=== PATIENT | female | born 1980 | race Caucasian/White ===

== ENCOUNTER 2020-11-16 23:45 | Emergency (ER) | payer OTHER ==
[~2020-11-16] VITALS: Ht 157.5 cm; Wt 181.4 kg
[~2020-11-16 23:45] MED LIST: ALBU17AE19 INH
[2020-11-17 00:02] VITALS: BP_SYST 164
[2020-11-17] MEDS ORDERED: SULFAMETHOXAZOLE/TRIMETHOPR DS 1 TABLET PO ONE (01:00)
[2020-11-17] MEDS ORDERED: SULF1TAB48 PO (01:04)
[2020-11-17 01:30] VITALS: BP_SYST 164
== END 2020-11-17 01:30 | disposition home or self-care (01) ==
LOC: SED 23:45
DX: L02.415 Cutaneous abscess of right lower limb (principal); E66.01 Morbid (severe) obesity due to excess calories; I10 Essential (primary) hypertension; J45.909 Unspecified asthma, uncomplicated; Z68.45 Body mass index [BMI] 70 or greater, adult
CPT/HCPCS: 87070-TC; 99283

== ENCOUNTER 2021-01-30 10:40 | Emergency (ER) | payer OTHER, SELFPAY ==
[~2021-01-30] VITALS: Ht 157.5 cm; Wt 136.1 kg
[~2021-01-30 10:40] MED LIST changes: +SULF1TAB48 PO
[2021-01-30 11:00] VITALS: BP_SYST 146
[2021-01-30] MEDS ORDERED: KETOROLAC TROMETHAMINE 60 MG/2 ML VIAL IM ONE (11:30)
[2021-01-30 11:57] LABS: BILIRUBIN,URINE NEGATIVE (NEGATIVE); BLOOD, URINE 2+ (NEGATIVE); CLARITY/URINE SL CLOUDY (CLEAR); COLOR,URINE YELLOW (YELLOW); GLUCOSE,URINE NEGATIVE (NEGATIVE); KETONES,URINE NEGATIVE (NEGATIVE); LEUKOCYTE ESTERASE ,URINE 1+ (NEGATIVE); NITRITE, URINE POSITIVE (NEGATIVE); PH,URINE 7.5 (5.0-8.0); PROTEIN URINE 2+ (NEGATIVE); UROBILINOGEN,URINE 0.2 (0.2-1.0)
[2021-01-30 11:58] LABS: BASOPHILS # (AUTO) 0.1 K/uL (0.0-0.2); BASOPHILS % (AUTO) 0.6 % (0.0-2.0); EOSINOPHILS # (AUTO) 0.4 K/uL (0.0-0.4); EOSINOPHILS % (AUTO) 3.3 % (0.0-4.0); HEMATOCRIT 45.2 % (36-48); HEMOGLOBIN 13.9 g/dL (12.0-16.0); LYMPHOCYTES # (AUTO) 1.3 K/uL (1.0-5.5); LYMPHOCYTES % (AUTO) 11.8 % (20.5-51.5); MEAN CORPUSCULAR HEMOGLOBIN 23 pg (27-31); MEAN CORPUSCULAR HGB CONC 31 % (32-36); MEAN CORPUSCULAR VOLUME 74 fL (79.0-98.0); MONOCYTES # (AUTO) 0.4 K/uL (0.0-1.0); NEUTROPHILS % (AUTO) 80.3 % (40.0-70.0); PLATELET COUNT (AUTO) 262 K/uL (130-430); RED BLOOD CELL COUNT(AUTO) 6.12 MIL/uL (4.2-6.2); RED CELL DISTRIBUTION WIDTH 20.2 % (9.0-15.0); WHITE BLOOD COUNT (AUTO) 11.2 K/uL (4.8-10.8)
[2021-01-30 12:03] LABS: CALCIUM 9.2 mg/dL (8.4-11.0); CREATININE 0.73 mg/dL (0.55-1.30); POTASSIUM 3.9 mmol/L (3.5-5.1)
[2021-01-30 12:08] LABS: TOTAL BILIRUBIN 0.6 mg/dL (0.0-1.0)
[2021-01-30 12:10] LABS: PROTHROMBIN TIME 10.6 SECS (9.5-12.5)
[2021-01-30 12:17] LABS: BACTERIA,URINE MODERATE /HPF (None Seen); RBC,URINE 20-50 /HPF (0-3); WBC,URINE 20-50 /HPF (0-3)
[2021-01-30 12:31] LABS: C-REACTIVE PROTEIN QUANT 5.5 mg/dL (0-0.5)
[2021-01-30] MEDS ORDERED: cefTRIAXone 1 GM IVPB PREMIX 50 ML IV ONE (13:30)
[2021-01-30] MEDS ORDERED: ALBUTEROL MDI INHALATION 8 GM INH INH ONE (13:30)
[2021-01-30] MEDS ORDERED: IPRATROPIUM/ALBUTEROL SULFATE 3 ML AMPUL.NEB (DUONEB) INH ONE (13:30)
[2021-01-30] MEDS ORDERED: NITR-85 PO (13:32)
[2021-01-30 13:58] VITALS: BP_SYST 151
== END 2021-01-30 14:00 | disposition home or self-care (01) ==
LOC: SED 10:40
DX: N39.0 Urinary tract infection, site not specified (principal); R09.02 Hypoxemia; J45.909 Unspecified asthma, uncomplicated; Z79.899 Other long term (current) drug therapy; Z20.822 Contact with and (suspected) exposure to COVID-19
CPT/HCPCS: 36415; 36600; 71045; 74176; 76376; 80053; 81000; 82550; 82728; 82803; 83615; 83690; 83880; 84484; 85025; 85379; 85384; 85610; 85730; 86140; 87040; 87086; 87426; 94640; 96365; 96372; 99285; J0696; J1885